=== PATIENT | male | born 1950 | race Caucasian/White ===

== ENCOUNTER → 2021-05-17 | Outpatient (CLI) | payer MEDICARE, OTHER ==
[~2021-05-17] MED LIST: ALL DAY ALLERGY10 M2 PO; AMBIEN5 MG PO; ASPIRIN CHEWABL81 MG PO; BENADRYL 25MG C25 MG PO; COREG 3.125M3.125 MG PO; FENOFIBRATE160 MG PO; JANUVIA100 MG PO; LASIX20 MG PO; LINZESS145 MCG PO; NITRO-TIME6.5 MG PO; NITROSTAT0.4 MG SL; PLAVIX 75 MG TA75 MG PO; PRINIVIL5 MG PO; PROTONIX40 MG PO; PROZAC20 MG PO; RANEXA500 MG PO; SINGULAIR10 MG PO; TOPROL XL25 MG PO; TRESIBA FL100 UNIT/1 SQ; VASCEPA1 GM PO; ZANTAC150 MG PO; ZETIA 10 MG TAB10 MG PO
== END ==
LOC: HEART 5 09:15
DX: I20.9 Angina pectoris, unspecified (principal); I25.6 Silent myocardial ischemia
CPT/HCPCS: 78452; A9502; J2785

== ENCOUNTER → 2022-01-28 | Outpatient (CLI) | payer MEDICARE, OTHER | LOC: CT 08-20 11:30 → HEART 5 11:30 → CT 12:55 | DX: R06.02 Shortness of breath (principal); I11.0 Hypertensive heart disease with heart failure; I25.10 Atherosclerotic heart disease of native coronary artery without angina pectoris; I50.22 Chronic systolic (congestive) heart failure; I25.5 Ischemic cardiomyopathy; R00.9 Unspecified abnormalities of heart beat; I77.819 Aortic ectasia, unspecified site; I08.1 Rheumatic disorders of both mitral and tricuspid valves | CPT/HCPCS: 36415; 74175; 82565; 84520; 93306; Q9967 ==